=== PATIENT | female | born 1995 | race Caucasian/White ===

== ENCOUNTER 2019-06-05 15:00 | Emergency (ER) | payer OTHER ==
[2019-06-05] MEDS ORDERED: Ketorolac INJ* 30 MG/ML 1 ML VIAL IV PUSH ONE (17:17)
[2019-06-05] MEDS ORDERED: Ondansetron INJ* 2 MG/ML VIAL IV ONE (17:17)
[2019-06-05] MEDS ORDERED: Albuterol 2.5 MG/3 ML NEB.SOL* (0.083%) INH ONE (17:17)
[2019-06-05] MEDS ORDERED: NS 0.9% 1000 ML** 1,000 ML IV ONE (17:17)
[2019-06-05 18:18] LABS: ABS Eosinophils 0.3 10^3/ul (0-0.6); ABS Lymphocytes 2.4 10^3/ul (1.0-4.8); ABS Monocytes 0.7 10^3/ul (0-0.8); ABS Neutrophils 3.7 10^3/ul (1.5-7.7); Eosinophil % 4.5 %; Hematocrit 45 % (35-47); Hemoglobin 15.1 g/dL (12.0-16.0); Lymphocyte % 33.7 %; Mean Corpuscular HGB Conc 34 g/dL (31-36); Mean Corpuscular Hemoglobin 31 pg (27-31); Mean Corpuscular Volume 91 fL (80-97); Mean Platelet Volume 7.5 fL (7.4-10.4); Platelet Count 294 10^3/uL (150-450); Red Blood Count 4.94 10^6 /uL (3.70-4.87); Red Cell Distribution Width 13 % (10-15); White Blood Count 7.1 10^3/uL (3.5-10.8)
[2019-06-05 18:39] LABS: ALT 14 U/L (7-52); AST 14 U/L (13-39); Albumin 4.7 g/dL (3.2-5.2); Albumin/Globulin Ratio 1.4 (1-3); Alkaline Phosphatase 86 U/L (34-104); Anion Gap 7 mmol/L (2-11); BUN/Creatinine Ratio 16.7 (8-20); Blood Urea Nitrogen 12 mg/dL (6-24); C Reactive Protein 8.28 mg/L (<8.01); CO2 Carbon Dioxide 25 mmol/L (22-32); Calcium 9.8 mg/dL (8.6-10.3); Chloride 107 mmol/L (101-111); EGFR African American 120.4 (>60); EGFR Non-African American 99.5 (>60); Globulin 3.3 g/dL (2-4); Glucose 86 mg/dL (70-100); Potassium 4.2 mmol/L (3.5-5.0); Sodium 139 mmol/L (135-145)
[2019-06-05 18:40] LABS: Activated Partial Thrombo Time 35.4 seconds (26.0-38.0); INR 1.09 (0.82-1.09)
[2019-06-05 18:43] LABS: HCG Pregnancy < 0.60 mIU/mL
--- NOTE | 2019-06-05 19:21 | ED ---
HPI Febrile Illness - HPI Summary HPI Summary: 23-year-old female presents with fever for past couple days. States she was diagnosed with kidney infection, sinusitis and bronchitis a couple days ago. States she was placed on antibiotics (cednifir) if no improvement. She admits to occasional fevers. She admits to sinus congestion. She admits to occasional sore throat. She denies any chest pain shortness breath currently. Denies any bowel pain. She denies any nausea vomiting diarrhea. Admits to some urgency but no dysuria. She has no medical conditions. - History of Current Complaint Chief Complaint: EDBackInjuryPain Time Seen by Provider: 06/05/19 17:08 Hx Last Menstrual Period: 1 WEEK AGO Pain Intensity: 5 - Allergy/Home Medications Allergies/Adverse Reactions: Allergies Allergy/AdvReac Type Severity Reaction Status Date / Time doxycycline Allergy GI Upset Verified 06/05/19 15:08 Home Medications: Home Medications Albuterol HFA INHALER* [Ventolin HFA Inhaler*] 1 puff INH Q6H PRN 06/05/19 [ History Confirmed 06/05/19] Benzonatate CAP* [Tessalon 100 MG CAP*] 100 mg PO TID PRN 06/05/19 [History Confirmed 06/05/19] Cefdinir cap* [Cefdinir 300 MG cap (NF)] 300 mg PO BID 06/05/19 [History Confirmed 06/05/19] FLUoxetine CAP* [PROzac CAP*] 10 mg PO DAILY 06/05/19 [History Confirmed ] Varenicline 0.5 mg Tab(Nf) [Chantix 0.5 MG TAB(NF)] 0.5 mg PO DAILY 06/05/19 [ History Confirmed 06/05/19] hydrOXYzine HCL TAB* [Atarax 25 MG TAB*] 50 mg PO TID PRN 06/05/19 [History Confirmed 06/05/19] lamoTRIgine TAB(*) [LaMICtal TAB(*)] 25 mg PO DAILY 06/05/19 [History Confirmed 06/05/19] PMH/Surg Hx/FS Hx/Imm Hx Endocrine/Hematology History: Denies: Hx Anticoagulant Therapy, Hx Diabetes, Hx Thyroid Disease Cardiovascular History: Denies: Hx Hypertension, Hx Pacemaker/ICD Respiratory History: Denies: Hx Asthma, Hx Chronic Obstructive Pulmonary Disease (COPD) GI History: Denies: Hx Ulcer Musculoskeletal History: Reports: Other Musculoskeletal History - HX OF FUSED C3 -C4, BORN WITH Sensory History: Reports: Hx Contacts or Glasses - GLASSES Opthamlomology History: Reports: Hx Contacts or Glasses - GLASSES Psychiatric History: Reports: Hx Depression - CONTROL WITH MEDS, Hx Panic Disorder - Surgical History Surgery Procedure, Year, and Place: LEFT ARM FRACTURE REPAIR, [facility]. 2014 WISDOM TEETH EXTRACTION, [place] Hx Anesthesia Reactions: No - Immunization History Date of Tetanus Vaccine: up to date per pt Infectious Disease History: No Infectious Disease History: Denies: Hx Hepatitis, Hx Human Immunodeficiency Virus (HIV), Traveled Outside the [place] in Last 30 Days - Family History Known Family History: Negative: Cardiac Disease, Hypertension, Diabetes - Social History Alcohol Use: Rare Hx Substance Use: No Substance Use Type: Reports: None Hx Tobacco Use: Yes Smoking Status (MU): Current Every Day Smoker Type: Cigarettes Amount Used/How Often: 1 PPD Review of Systems Positive: Fever Positive: Sore Throat, Nasal Discharge Negative: Chest Pain Positive: Cough. Negative: Shortness Of Breath Positive: Vomiting, Diarrhea, Nausea. Negative: Abdominal Pain Positive: flank pain All Other Systems Reviewed And Are Negative: Yes Physical Exam Triage Information Reviewed: Yes Vital Signs On Initial Exam: Initial Vitals Temp Pulse Resp BP Pulse Ox 98.2 F 77 18 117/75 98 06/05/19 15:05 06/05/19 15:05 06/05/19 15:05 06/05/19 15:05 06/05/19 15:05 Vital Signs Reviewed: Yes Appearance: Positive: Well-Appearing Skin: Positive: Warm, Dry Head/Face: Positive: Normal Head/Face Inspection Eyes: Positive: Normal, EOMI, LILLIAN, Conjunctiva Clear ENT: Positive: Normal ENT inspection, Pharynx normal, TMs normal Neck: Positive: Supple, Nontender, No Lymphadenopathy. Negative: Nuchal Rigidity Respiratory/Lung Sounds: Positive: Clear to Auscultation, Breath Sounds Present Cardiovascular: Positive: Normal, RRR Abdomen Description: Positive: Nontender, Soft, CVA Tenderness (R) - mild Bowel Sounds: Positive: Present Musculoskeletal: Positive: Normal Neurological: Positive: Normal Psychiatric: Positive: Normal Procedures - Sedation Patient Received Moderate/Deep Sedation with Procedure: No Diagnostics - Vital Signs Vital Signs Temp Pulse Resp BP Pulse Ox 11/01/19 18:01 74 16 98 06/05/19 18:00 83 99 06/05/19 17:44 71 113/67 98 06/05/19 17:09 99 121/73 97 06/05/19 15:05 98.2 F 77 18 117/75 98 - Laboratory Lab Results: Lab Results 06/05/19 06/05/19 06/05/19 Range/Units 18:07 18:08 18:08 WBC 7.1 (3.5-10.8) 10^3/uL RBC 4.94 H (3.70-4.87) 10^6 /uL Hgb 15.1 (12.0-16.0) g/dL Hct 45 (35-47) % MCV 91 (80-97) fL MCH 31 (27-31) pg MCHC 34 (31-36) g/dL RDW 13 (10-15) % Plt Count 294 (150-450) 10^3/uL MPV 7.5 (7.4-10.4) fL Neut % (Auto) 52.0 % Lymph % (Auto) 33.7 % [place] % (Auto) 9.3 % Eos % (Auto) 4.5 % Baso % (Auto) 0.5 % Absolute Neuts (auto) 3.7 (1.5-7.7) 10^3/ul Absolute Lymphs (auto) 2.4 (1.0-4.8) 10^3/ul Absolute Monos (auto) 0.7 (0-0.8) 10^3/ul Absolute Eos (auto) 0.3 (0-0.6) 10^3/ul Absolute Basos (auto) 0.0 (0-0.2) 10^3/ul Absolute Nucleated RBC 0.0 10^3/ul Nucleated RBC % 0.0 ESR Pending INR (Anticoag Therapy) 1.09 (0.82-1.09) APTT 35.4 (26.0-38.0) seconds Sodium 139 (135-145) mmol/L Potassium 4.2 (3.5-5.0) mmol/L Chloride 107 (101-111) mmol/L Carbon Dioxide 25 (22-32) mmol/L Anion Gap 7 (2-11) mmol/L BUN 12 (6-24) mg/dL Creatinine 0.72 (0.51-0.95) mg/dL Est GFR ( Amer) 120.4 (>60) Est GFR (Non-Af Amer) 99.5 (>60) BUN/Creatinine Ratio 16.7 (8-20) Glucose 86 (70-100) mg/dL Lactic Acid (0.5-2.0) mmol/L Calcium 9.8 (8.6-10.3) mg/dL Total Bilirubin 0.40 (0.2-1.0) mg/dL AST 14 (13-39) U/L ALT 14 (7-52) U/L Alkaline Phosphatase 86 (34-104) U/L C-Reactive Protein 8.28 H (<8.01) mg/L Total Protein 8.0 (6.4-8.9) g/dL Albumin 4.7 (3.2-5.2) g/dL Globulin 3.3 (2-4) g/dL Albumin/Globulin Ratio 1.4 (1-3) Beta HCG, Quant < 0.60 mIU/mL Monoscreen Negative (Negative) 06/05/19 Range/Units 18:08 WBC (3.5-10.8) 10^3/uL RBC (3.70-4.87) 10^6 /uL Hgb (12.0-16.0) g/dL Hct (35-47) % MCV (80-97) fL MCH (27-31) pg MCHC (31-36) g/dL RDW (10-15) % Plt Count (150-450) 10^3/uL MPV (7.4-10.4) fL Neut % (Auto) % Lymph % (Auto) % Jerome % (Auto) % Eos % (Auto) % Baso % (Auto) % Absolute Neuts (auto) (1.5-7.7) 10^3/ul Absolute Lymphs (auto) (1.0-4.8) 10^3/ul Absolute Monos (auto) (0-0.8) 10^3/ul Absolute Eos (auto) (0-0.6) 10^3/ul Absolute Basos (auto) (0-0.2) 10^3/ul Absolute Nucleated RBC 10^3/ul Nucleated RBC % ESR INR (Anticoag Therapy) (0.82-1.09) APTT (26.0-38.0) seconds Sodium (135-145) mmol/L Potassium (3.5-5.0) mmol/L Chloride (101-111) mmol/L Carbon Dioxide (22-32) mmol/L Anion Gap (2-11) mmol/L BUN (6-24) mg/dL Creatinine (0.51-0.95) mg/dL Est GFR ( Amer) (>60) Est GFR (Non-Af Amer) (>60) BUN/Creatinine Ratio (8-20) Glucose (70-100) mg/dL Lactic Acid 0.8 (0.5-2.0) mmol/L Calcium (8.6-10.3) mg/dL Total Bilirubin (0.2-1.0) mg/dL AST (13-39) U/L ALT (7-52) U/L Alkaline Phosphatase (34-104) U/L C-Reactive Protein (<8.01) mg/L Total Protein (6.4-8.9) g/dL Albumin (3.2-5.2) g/dL Globulin (2-4) g/dL Albumin/Globulin Ratio (1-3) Beta HCG, Quant mIU/mL Monoscreen (Negative) Result Diagrams: 06/05/19 18:08 06/05/19 18:08 Lab Statement: Any lab studies that have been ordered have been reviewed, and results considered in the medical decision making process. - Radiology chest Radiology Interpretation Completed By: ED Physician Summary of Radiographic Findings: no pneumonia - Ultrasound No standard instances Ultrasound Interpretation Completed By: Radiologist Summary of Ultrasound Findings: IMPRESSION: Unremarkable renal ultrasound. Re-Evaluation - Re-Evaluation First Eval Change: Improved Comment: feels fine Second Eval Re-Evaluation Time: 19:40 Comment: discussed results Course/Dx - Course Course Of Treatment: 23-year-old female presents with fever for past couple days. States she was diagnosed with kidney infection, sinusitis and bronchitis a couple days ago. States she was placed on antibiotics (cednifir) if no improvement. She admits to occasional fevers. She admits to sinus congestion. She admits to occasional sore throat. She denies any chest pain shortness breath currently. Denies any bowel pain. She denies any nausea vomiting diarrhea. Admits to some urgency but no dysuria. She has no medical conditions. On exam appears well. Lungs CTA. Abdomen soft nontender. Does have some mild right CVA tenderness. wbc normal. CRP slightly elevated. Ultrasound normal. Chest x-ray normal. urine no infection. mono neg. discussed likely viral. will treat supporatively. patient understand and agrees with plan. - Febrile Illness Differential Diagnoses: Pneumonia, Pyelonephritis, Viremia - Diagnoses Provider Diagnoses: Bronchitis Discharge ED - Sign-Out/Discharge Documenting (check all that apply): Patient Departure - Discharge Plan Condition: Good Disposition: HOME Patient Education Materials: Acute Bronchitis (ED) Referrals: Nikki Murphy MD [Primary Care Provider] - Additional Instructions: Take Tylenol and ibuprofen every 6 hours Use saline rinses in nose for nasal congestion Follow up with primary within 3 days Return to ED if develop any new or worsening symptoms - Billing Disposition and Condition Condition: GOOD Disposition: Home - Attestation Statements Provider Attestation: I was available for consult. This patient was seen by the [facility]. The patient was not presented to, seen by, or examined by me. Tremayne Hammer MD
[2019-06-05 19:35] LABS: Urine Appearance Cloudy; Urine Bilirubin Negative (Negative); Urine Blood Negative (Negative); Urine Color Yellow; Urine Glucose Negative (Negative); Urine Ketones Negative (Negative); Urine Nitrite Negative (Negative); Urine Protein Negative (Negative); Urine Specific Gravity 1.011 (1.010-1.030); Urine Urobilinogen Negative (Negative)
[2019-06-05 20:00] VITALS: BP 107/54
[2019-06-05 20:42] LABS: Erythrocyte Sed Rate 12 mm/Hr (0-19)
== END 2019-06-05 19:59 | disposition home or self-care (01) ==
LOC: ED 15:00
DX: J40 Bronchitis, not specified as acute or chronic (principal); F32.9 Major depressive disorder, single episode, unspecified; F41.0 Panic disorder [episodic paroxysmal anxiety]; F17.210 Nicotine dependence, cigarettes, uncomplicated; Z79.899 Other long term (current) drug therapy; Z88.1 Allergy status to other antibiotic agents
CPT/HCPCS: 36415; 71046; 76775; 80053; 81003; 83605; 84702; 85025; 85610; 85652; 85730; 86140; 86308; 87040; 96361; 96374; 96375; 99282; J1885; J2405

== ENCOUNTER 2019-09-08 09:46 | Emergency (ER) | payer MEDICAID, OTHER ==
[2019-09-08 10:42] LABS: ABS Eosinophils 0.3 10^3/ul (0-0.6); ABS Lymphocytes 1.9 10^3/ul (1.0-4.8); ABS Monocytes 0.7 10^3/ul (0-0.8); ABS Neutrophils 6.3 10^3/ul (1.5-7.7); Eosinophil % 2.8 %; Hematocrit 43 % (35-47); Hemoglobin 14.5 g/dL (12.0-16.0); Lymphocyte % 20.9 %; Mean Corpuscular HGB Conc 34 g/dL (31-36); Mean Corpuscular Hemoglobin 30 pg (27-31); Mean Corpuscular Volume 89 fL (80-97); Mean Platelet Volume 7.6 fL (7.4-10.4); Platelet Count 279 10^3/uL (150-450); Red Cell Distribution Width 14 % (10-15); White Blood Count 9.3 10^3/uL (3.5-10.8)
[2019-09-08 11:02] LABS: ALT 18 U/L (7-52); AST 15 U/L (13-39); Albumin 4.4 g/dL (3.2-5.2); Albumin/Globulin Ratio 1.5 (1-3); Alkaline Phosphatase 83 U/L (34-104); Anion Gap 6 mmol/L (2-11); BUN/Creatinine Ratio 21.8 (8-20); Blood Urea Nitrogen 17 mg/dL (6-24); CO2 Carbon Dioxide 27 mmol/L (22-32); Calcium 9.2 mg/dL (8.6-10.3); Chloride 107 mmol/L (101-111); EGFR African American 109.8 (>60); EGFR Non-African American 90.7 (>60); Globulin 2.9 g/dL (2-4); Glucose 101 mg/dL (70-100); Potassium 4.7 mmol/L (3.5-5.0); Sodium 140 mmol/L (135-145); Total Protein 7.3 g/dL (6.4-8.9)
[2019-09-08 11:07] LABS: HCG Pregnancy < 0.60 mIU/mL
--- NOTE | 2019-09-08 12:02 | ED ---
Abdominal Pain/Female - HPI Summary HPI Summary: The patient is a 23 year-old female presenting to [facility] with a chief complaint of RUQ pain worsening over the last month and worst today. She reports that approximately a year ago, while experiencing similar pain, that she likely needed a cholecystectomy, but she never followed up. Over the last month, the pain has worsened, and she was scheduled for a Gallbladder US today at the [facility] in [place]. While at the appointment, her pain became more severe , but they were able to finish the US. She had lab work two days ago which was within normal limits. She endorses intermittent chills, diaphoresis, nausea, and vomiting. Symptoms currently rated 6/10 in severity. 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 Current smoker, rare EtOH, no substance use. Medications reviewed. Allergies noted. - History of Current Complaint Chief Complaint: EDAbdPain Stated Complaint: UPPER ABD PAIN PER PT Time Seen by Provider: 09/08/19 11:50 Hx Obtained From: Patient Hx Last Menstrual Period: 1 WEEK AGO Onset/Duration: Gradual Onset, Lasting Weeks, Still Present, Worse Since - today Timing: Constant Severity Initially: Mild Severity Currently: Moderate Pain Intensity: 6 Pain Scale Used: 0-10 Numeric Location: Discrete At: RUQ Radiates: No Character: Sharp Aggravating Factor(s): Nothing Alleviating Factor(s): Nothing Associated Signs and Symptoms: Positive: Diaphoresis, Nausea, Vomiting, Other: - chills Allergies/Adverse Reactions: Allergies Allergy/AdvReac Type Severity Reaction Status Date / Time doxycycline Allergy GI Upset Verified 06/05/19 15:08 PMH/Surg Hx/FS Hx/Imm Hx Endocrine/Hematology History: Denies: Hx Anticoagulant Therapy, Hx Diabetes, Hx Thyroid Disease Cardiovascular History: Denies: Hx Hypertension, Hx Pacemaker/ICD Respiratory History: Denies: Hx Asthma, Hx Chronic Obstructive Pulmonary Disease (COPD) GI History: Denies: Hx Ulcer Musculoskeletal History: Reports: Other Musculoskeletal History - HX OF FUSED C3 -C4, BORN WITH Sensory History: Reports: Hx Contacts or Glasses - GLASSES Opthamlomology History: Reports: Hx Contacts or Glasses - GLASSES Psychiatric History: Reports: Hx Depression - CONTROL WITH MEDS, Hx Panic Disorder - Surgical History Surgical History: Yes Surgery Procedure, Year, and Place: LEFT ARM FRACTURE REPAIR, [facility] – [place]. 2014 WISDOM TEETH EXTRACTION, [place] Hx Anesthesia Reactions: No - Immunization History Date of Tetanus Vaccine: up to date per pt Infectious Disease History: No Infectious Disease History: Denies: Hx Hepatitis, Hx Human Immunodeficiency Virus (HIV), Traveled Outside the US in Last 30 Days - Family History Known Family History: Negative: Cardiac Disease, Hypertension, Diabetes - Social History Alcohol Use: Rare Hx Substance Use: No Substance Use Type: Reports: None Hx Tobacco Use: Yes Smoking Status (MU): Current Every Day Smoker Type: Cigarettes Amount Used/How Often: 1 PPD Review of Systems Positive: Chills, Skin Diaphoresis Positive: Abdominal Pain - RUQ, Vomiting, Nausea All Other Systems Reviewed And Are Negative: Yes Physical Exam - Summary Physical Exam Summary: Constitutional: Well-developed, Well-nourished, Alert. (-) Distressed Skin: Warm, Dry HENT: Normocephalic; Atraumatic Eyes: Conjunctiva normal Neck: Musculoskeletal ROM normal neck. (-) JVD, (-) Stridor, (-) Tracheal deviation Cardio: Rhythm regular, rate normal, Heart sounds normal; Intact distal pulses; The pedal pulses are 2+ and symmetric. Radial pulses are 2+ and symmetric. (-) Murmur Pulmonary/Chest wall: Effort normal. (-) Respiratory distress, (-) Wheezes, (-) Rales Abd: Soft, (+) Mild epigastric/RUQ tenderness, (-) Distension, (-) Guarding, (- ) Rebound Musculoskeletal: (-) Edema Lymph: (-) Cervical adenopathy Neuro: Alert, Oriented x3 Psych: Mood and affect Normal Triage Information Reviewed: Yes Vital Signs On Initial Exam: Initial Vitals Temp Pulse Resp BP Pulse Ox 97.4 F 59 18 112/80 99 09/08/19 09:47 09/08/19 09:47 09/08/19 09:47 09/08/19 09:47 09/08/19 09:47 Vital Signs Reviewed: Yes Procedures - Sedation Patient Received Moderate/Deep Sedation with Procedure: No Diagnostics - Vital Signs Vital Signs Temp Pulse Resp BP Pulse Ox 09/08/19 11:49 98.4 F 68 20 121/54 99 09/08/19 09:47 97.4 F 59 18 112/80 99 - Laboratory Lab Results: Lab Results 09/08/19 09/08/19 Range/Units 10:21 10:21 WBC 9.3 (3.5-10.8) 10^3/uL RBC 4.80 (3.70-4.87) 10^6 /uL Hgb 14.5 (12.0-16.0) g/dL Hct 43 (35-47) % MCV 89 (80-97) fL MCH 30 (27-31) pg MCHC 34 (31-36) g/dL RDW 14 (10-15) % Plt Count 279 (150-450) 10^3/uL MPV 7.6 (7.4-10.4) fL Neut % (Auto) 68.2 % Lymph % (Auto) 20.9 % [place] % (Auto) 7.6 % Eos % (Auto) 2.8 % Baso % (Auto) 0.5 % Absolute Neuts (auto) 6.3 (1.5-7.7) 10^3/ul Absolute Lymphs (auto) 1.9 (1.0-4.8) 10^3/ul Absolute Monos (auto) 0.7 (0-0.8) 10^3/ul Absolute Eos (auto) 0.3 (0-0.6) 10^3/ul Absolute Basos (auto) 0.0 (0-0.2) 10^3/ul Absolute Nucleated RBC 0.0 10^3/ul Nucleated RBC % 0.0 Sodium 140 (135-145) mmol/L Potassium 4.7 (3.5-5.0) mmol/L Chloride 107 (101-111) mmol/L Carbon Dioxide 27 (22-32) mmol/L Anion Gap 6 (2-11) mmol/L BUN 17 (6-24) mg/dL Creatinine 0.78 (0.51-0.95) mg/dL Est GFR ( Amer) 109.8 (>60) Est GFR (Non-Af Amer) 90.7 (>60) BUN/Creatinine Ratio 21.8 H (8-20) Glucose 101 H (70-100) mg/dL Calcium 9.2 (8.6-10.3) mg/dL Total Bilirubin 0.30 (0.2-1.0) mg/dL AST 15 (13-39) U/L ALT 18 (7-52) U/L Alkaline Phosphatase 83 (34-104) U/L Total Protein 7.3 (6.4-8.9) g/dL Albumin 4.4 (3.2-5.2) g/dL Globulin 2.9 (2-4) g/dL Albumin/Globulin Ratio 1.5 (1-3) Lipase < 10 L (11.0-82.0) U/L Beta HCG, Quant < 0.60 mIU/mL Result Diagrams: 09/08/19 10:21 09/08/19 10:21 Lab Statement: Any lab studies that have been ordered have been reviewed, and results considered in the medical decision making process. Re-Evaluation - Re-Evaluation First Eval Re-Evaluation Time: 15:20 Comment: We discussed results and plan for discharge with surgery follow up. Abdominal Pain Fem Course/Dx - Course Course Of Treatment: Patient is a 23 year-old female presenting with RUQ pain, nausea, vomiting, chills, and diaphoresis over the last month but worsening today while having a Gallbladder US at the [facility] to determine if she needs a cholecystectomy as she was advised a year ago that she would need one but never followed up. 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 Physical exam is significant for mild epigastric/RUQ tenderness. Blood work obtained, revealing lipase <10 but otherwise within normal limits. We attempted to obtain the results of the patient's US from earlier today, but the report has not been transmitted to the clinic yet. Based on her lab results and physical exam, she is safe for discharge at this time. She is referred to surgery for consulation. Patient agreeable with plan. Patient appears well, afebrile, nontoxic, requesting discharge home. As noted, unable to obtain gallbladder ultrasound report from study performed earlier today. Patient given general surgery referral. - Diagnoses Provider Diagnoses: Gallstones Discharge ED - Sign-Out/Discharge Documenting (check all that apply): Patient Departure - Patient will be discharged home. - Discharge Plan Condition: Stable Disposition: HOME Patient Education Materials: Gallstones (ED) Referrals: Nikki Murphy MD [Primary Care Provider] - 2 Days Elza Gallegos MD [Medical Doctor] - 2 Days Additional Instructions: Follow up with Dr. Gallegos from surgery in 1-2 days. Follow up with your primary care provider in 1-2 days. Return to the emergency department for any new or worsening symptoms. - Billing Disposition and Condition Condition: STABLE Disposition: Home - Attestation Statements Document Initiated by Gloria: Yes Documenting Scribe: Ceci Coulter Provider For Whom Gloria is Documenting (Include Credential): Dr. Ata Perez DO Scribe Attestation: ICeci scribed for Dr. Ata Perez DO on 09/08/19 at 1508. Scribe Documentation Reviewed: Yes Provider Attestation: The documentation as recorded by the Ceci pepe accurately reflects the service I personally performed and the decisions made by me, Dr. Ata Perez DO Status of Scrbeatriz Document: Viewed
[2019-09-08 14:11] VITALS: BP 00/00
== END 2019-09-08 14:09 | disposition home or self-care (01) ==
LOC: ED 09:46
DX: K80.80 Other cholelithiasis without obstruction (principal); F32.9 Major depressive disorder, single episode, unspecified; F17.210 Nicotine dependence, cigarettes, uncomplicated; Z90.49 Acquired absence of other specified parts of digestive tract; Z88.1 Allergy status to other antibiotic agents
CPT/HCPCS: 36415; 80053; 83690; 84702; 85025; 99283

== ENCOUNTER 2019-09-10 06:31 | Inpatient (IN) | payer OTHER ==
--- NOTE | 2019-09-10 06:43 | ED ---
Abdominal Pain/Female - HPI Summary HPI Summary: Pt. is a 23 y.o female who presents to the ER for worsening RUQ pain with known gallstones. Pt. states she had a GB u/s two days ago at [place] and was referred to ED for stones. Pt. seen here two days ago and was dc with surgery f.u. Pt. states pain has been constant since with associated vomiting and chills. Pt. also notes mild left CVA tenderness. Sxs are moderate in severity. No current modifying factors. - History of Current Complaint Chief Complaint: EDAbdPain Stated Complaint: ABD PAIN PER PT Time Seen by Provider: 09/10/19 06:42 Hx Obtained From: Patient Hx Last Menstrual Period: 1 WEEK AGO Pain Intensity: 8 Allergies/Adverse Reactions: Allergies Allergy/AdvReac Type Severity Reaction Status Date / Time doxycycline Allergy GI Upset Verified 06/05/19 15:08 PMH/Surg Hx/FS Hx/Imm Hx Previously Healthy: Yes Endocrine/Hematology History: Denies: Hx Anticoagulant Therapy, Hx Diabetes, Hx Thyroid Disease Cardiovascular History: Denies: Hx Hypertension, Hx Pacemaker/ICD Respiratory History: Denies: Hx Asthma, Hx Chronic Obstructive Pulmonary Disease (COPD) GI History: Denies: Hx Ulcer Musculoskeletal History: Reports: Other Musculoskeletal History - HX OF FUSED C3 -C4, BORN WITH Sensory History: Reports: Hx Contacts or Glasses - GLASSES Opthamlomology History: Reports: Hx Contacts or Glasses - GLASSES Psychiatric History: Reports: Hx Depression - CONTROL WITH MEDS, Hx Panic Disorder - Surgical History Surgery Procedure, Year, and Place: LEFT ARM FRACTURE REPAIR, [facility]. 2014 WISDOM TEETH EXTRACTION, [place] Hx Anesthesia Reactions: No - Immunization History Date of Tetanus Vaccine: up to date per pt Infectious Disease History: No Infectious Disease History: Denies: Hx Hepatitis, Hx Human Immunodeficiency Virus (HIV), Traveled Outside the [place] in Last 30 Days - Family History Known Family History: Positive: Non-Contributory Negative: Cardiac Disease, Hypertension, Diabetes - Social History Occupation: Employed Part-time Lives: With Family Alcohol Use: Rare Hx Substance Use: No Substance Use Type: Reports: None Hx Tobacco Use: Yes Smoking Status (MU): Current Every Day Smoker Type: Cigarettes Amount Used/How Often: 1 PPD Review of Systems Positive: Chills ENT: Negative Cardiovascular: Negative Negative: Chest Pain Respiratory: Negative Negative: Shortness Of Breath Positive: Abdominal Pain, Vomiting, Nausea Genitourinary: Negative Negative: dysuria Neurological: Negative All Other Systems Reviewed And Are Negative: Yes Physical Exam Triage Information Reviewed: Yes Vital Signs On Initial Exam: Initial Vitals Temp Pulse Resp BP Pulse Ox 97.8 F 101 20 144/100 96 09/10/19 06:34 09/10/19 06:34 09/10/19 06:34 09/10/19 06:34 09/10/19 06:34 Vital Signs Reviewed: Yes Appearance: Positive: Pain Distress - Pt. sitting up in bed, tearful, appears in pain. Nontoxic. Skin: Positive: Warm, Dry Head/Face: Positive: Normal Head/Face Inspection Eyes: Positive: Normal, EOMI, LILLIAN Neck: Positive: Supple Respiratory/Lung Sounds: Positive: Clear to Auscultation, Breath Sounds Present Cardiovascular: Positive: Normal, RRR Abdomen Description: Positive: Other: - Obese. Abd is soft with mild tenderness to RUQ. Negative minor sign. No rebound or guarding. Mild left CVA tenderness. Neurological: Positive: Normal, CN Intact II-III Psychiatric: Positive: Affect/Mood Appropriate Procedures - Sedation Patient Received Moderate/Deep Sedation with Procedure: No Diagnostics - Vital Signs Vital Signs Temp Pulse Resp BP Pulse Ox 09/10/19 06:34 97.8 F 101 20 144/100 96 - Laboratory Result Diagrams: 09/10/19 06:58 09/10/19 06:58 Lab Statement: Any lab studies that have been ordered have been reviewed, and results considered in the medical decision making process. Abdominal Pain Fem Course/Dx - Course Course Of Treatment: Pt. presenting with intractable pain and vomiting with known cholelithiasis. Afebrile. Pt. given IV fluids and pain medications. Pt.'s u/s was down at [place] and we do not have access. Will repeat u/s today and labs. GB u/s per radiology: IMPRESSION: #. Cholelithiasis and gallbladder wall thickening. No pericholecystic fluid or. sonographic Minor's sign to strongly support acute cholecystitis. Correlate with clinical. assessment and consider biliary scintigraphy to assess for cystic duct patency if deemed. appropriate. Labs shows minimally elevation in CRP otherwise unremarkable. Case discussed with ED attending, Dr. Soares. 0808: Case discussed with oncall surgery, Dr. Armendariz, who will admit pt. for likely cholelithiasis. - Diagnoses Differential Diagnosis: Positive: Gall Bladder Disease, Pancreatitis, Renal Colic, Urinary Tract Infection Provider Diagnoses: Cholelithiasis Discharge ED - Sign-Out/Discharge Documenting (check all that apply): Patient Departure - Discharge Plan Condition: Stable Disposition: ADMITTED TO [facility] - Billing Disposition and Condition Condition: STABLE Disposition: Admitted to [facility] - Attestation Statements Provider Attestation: pt seen by midlevel provider independently, based on their assessment, it was not necessary to present the case to me but I was available for consultation. I did not form a physician-patient relationship with the patient. The chart however, has been reviewed. am signing this note strictly in an administrative capacity.
[2019-09-10] MEDS ORDERED: Morphine 4 MG/ML VIAL (1 ml) 4 MG/ML VIAL IV ONE (06:49)
[2019-09-10] MEDS ORDERED: NS 0.9% 1000 ML** 1,000 ML IV ONE (06:49)
[2019-09-10] MEDS ORDERED: Ondansetron INJ* 2 MG/ML VIAL IV ONE (06:49)
[2019-09-10 07:07] LABS: ABS Eosinophils 0.3 10^3/ul (0-0.6); ABS Lymphocytes 2.2 10^3/ul (1.0-4.8); ABS Monocytes 0.7 10^3/ul (0-0.8); ABS Neutrophils 5.9 10^3/ul (1.5-7.7); Eosinophil % 3.2 %; Hematocrit 42 % (35-47); Hemoglobin 14.5 g/dL (12.0-16.0); Lymphocyte % 23.8 %; Mean Corpuscular HGB Conc 34 g/dL (31-36); Mean Corpuscular Hemoglobin 30 pg (27-31); Mean Corpuscular Volume 88 fL (80-97); Mean Platelet Volume 7.3 fL (7.4-10.4); Nucleated Red Blood Cells % 0.1; Platelet Count 299 10^3/uL (150-450); Red Blood Count 4.81 10^6 /uL (3.70-4.87); Red Cell Distribution Width 13 % (10-15); White Blood Count 9.1 10^3/uL (3.5-10.8)
[2019-09-10 07:30] LABS: ALT 17 U/L (7-52); AST 13 U/L (13-39); Albumin 4.3 g/dL (3.2-5.2); Albumin/Globulin Ratio 1.4 (1-3); Alkaline Phosphatase 83 U/L (34-104); Anion Gap 6 mmol/L (2-11); BUN/Creatinine Ratio 19.7 (8-20); Blood Urea Nitrogen 14 mg/dL (6-24); C Reactive Protein 12.59 mg/L (<8.01); CO2 Carbon Dioxide 27 mmol/L (22-32); Calcium 9.8 mg/dL (8.6-10.3); Chloride 104 mmol/L (101-111); EGFR African American 122.4 (>60); EGFR Non-African American 101.1 (>60); Glucose 127 mg/dL (70-100); Sodium 137 mmol/L (135-145); Total Protein 7.3 g/dL (6.4-8.9)
[2019-09-10 07:32] LABS: HCG Pregnancy < 0.60 mIU/mL
[2019-09-10] MEDS ORDERED: HYDROmorphone INJ* 0.5 MG/0.5 ML SYRINGE IV SLOW PU PRN (11:17)
[2019-09-10] MEDS ORDERED: oxyCODONE/Acetamin 5/325 MG* TAB PO PRN (11:17)
[2019-09-10] MEDS ORDERED: NS 0.9% 1000 ML** 1,000 ML IV SCH (11:30)
--- NOTE | 2019-09-10 11:34 | HP ---
History of Present Illness - History of Present Illness Reason for Visit: Cholecytitis History of Present Illness: 23 yo female who was seen in [facility] and our ED in the last few days for N/V/D, RUQ abdominal pain, history of same after fatty foods. Was to be seen as an outpatient for elective cholecystectomy but return of her symptoms brought her back to the ED. Wants to have her GB out. - Past Medical History Gastrointestinal: GERD Hepatobiliary: Cholelithiasis Psych: Anxiety, Bipolar, Depression - Past Surgical History Past Surgical History: Other - EGD, Extraction of [place] teeth - Past Family History Family History: Cancer - Paternal GM with breast cancer, stomach cancer - Past Social History Smoke: 1 pack per day Occupation: [employer] Alcohol: Occasional Drugs: None Lives: With Family Domestic Violence: Negative Review of Systems - Review of Systems Constitutional: Positive: Fever Eyes: Negative: Pain, Vision Change, Conjunctivae Inflammation, Eyelid Inflammation, Redness, Other ENT: Negative: Ear Pain, Ear Discharge, Nose Pain, Nose Discharge, Nose Congestion, Mouth Pain, Mouth Swelling, Throat Pain, Throat Swelling, Other Respiratory: Negative: Cough, Dry, Shortness of Breath, Hemoptysis, SOB with Excertion, Pleuritic Pain, Sputum, Wheezing Cardiovascular: Negative: Chest Pain, Palpitations, Orthopnea, Paroxysmal Noc. Dyspnea, Edema, Light Headedness, Other Gastrointestinal: Positive: Nausea, Vomiting, Abdominal Pain, Diarrhea Genitourinary: Negative: Dysuria, Frequency, Incontinence, Hematuria, Retention , Other Musculoskeletal: Negative: Neck Pain, Shoulder Pain, Arm Pain, Back Pain, Hand Pain, Leg Pain, Foot Pain, Other Neurological/Mental Status: Negative: Weakness, Numbness, Incoordination, Change in Speech, Confusion, Seizures, Other - Medications/Allergies Allergies/Adverse Reactions: Allergies Allergy/AdvReac Type Severity Reaction Status Date / Time doxycycline Allergy GI Upset Verified 09/15/19 00:07 Exam - Exam Vital Signs: Vital Signs Temp 97.8 F 09/10/19 06:34 Pulse 65 09/10/19 10:00 Resp 18 09/10/19 07:23 BP 107/59 09/10/19 09:57 Pulse Ox 94 09/10/19 10:00 Intake & Output 09/09/19 09/10/19 09/10/19 18:59 06:59 18:59 Intake Total 1000 Balance 1000 Weight 170 lb Intake: IV Fluids 1000 Laboratory Tests 09/10/19 09/10/19 06:58 06:58 WBC 9.1 C-Reactive Protein 12.59 H Beta HCG, Quant < 0.60 Patient Name: MACIE LUU Medical Record#: [id number] Ordering Physician: Elijah ARTEAGA Acct.#: [id number] : 1995 Age: 23 Sex: F Location: EMERGENCY DEPARTMENT Exam Date: 09/10/19647 ADM Status: REG ER Order Information: US GALL BLADDER Accession Number: [id number] CPT: 86785 Indication: Right upper quadrant pain. History of cholelithiasis. COMPARISON: June 05, 2019 renal ultrasound. Technique: RIGHT upper quadrant ultrasound. Report: Appropriate direction flow documented in the portal and hepatic veins. 14.9 cm liver is normal in echogenicity. Negative for focal hepatic lesions. Negative for intrahepatic biliary dilatation. 0.4 cm common bile duct. Adequately distended gallbladder is packed with innumerable stones and remarkable for wall thickening measuring up to 0.5 cm. No visualized pericholecystic fluid. Negative for sonographic Minor's sign. The pancreatic head and tail are partially obscured due to bowel gas with the visualized pancreas unremarkable. Negative for ascites. RIGHT KIDNEY: 10.5 cm x 4.6 cm x 4.6 cm. #. Cortical thickness and echotexture: Normal. #. Focal lesions: None. #. Nephrolithiasis: No conspicuous stones. #. Collecting system: Negative for pelvicaliectasis. IMPRESSION: #. Cholelithiasis and gallbladder wall thickening. No pericholecystic fluid or sonographic Minor's sign to strongly support acute cholecystitis. Correlate with clinical assessment and consider biliary scintigraphy to assess for cystic duct patency if deemed appropriate. <Electronically signed by Troy Lewis MD in [place]> 09/10/19 0755 Dictated By: Troy Lewis MD Dictated Date/Time: 09/10/19 075 Transcribed Date/Time: 09/10/19 0752 Copy to: General: Alert, Oriented x3, Cooperative, No acute distress HEENT: Atraumatic, EOMI, Mucous membr. moist/pink Lungs: Clear to auscultation Cardiovascular: Regular rate, Normal S1, Normal S2 Abdomen: Normal bowel sounds, Soft, Other - ++ Tender RUQ, + Minor's Extremities: Other - calves soft non tender Skin: No rashes Neurological: Cranial nerves 3-12 NL Psych/Mental Status: Mental status NL, Mood NL Assessment/Plan - Assessment/Plan Assessment: 23 yo female with signs and symptoms CW cholecystitis Plan: Admit to surgery IV ABX, Cipro and Flagyl IV Fluids NPO after midnight for OR Tomorrow IV and PO Analgesia, IV only once NPO Risks and benefits of Surgery were D/W Patient, all Questions were answered Above D/W Dr Armendariz
[2019-09-10] MEDS ORDERED: Acetaminophen TAB* 325 MG PO PRN (11:48)
[2019-09-10] MEDS ORDERED: hydrOXYzine HCL TAB* 50 MG PO PRN (11:48)
[2019-09-10 11:53] LABS: Urine Appearance Clear; Urine Bilirubin Negative (Negative); Urine Blood Negative (Negative); Urine Color Straw; Urine Glucose Negative (Negative); Urine Ketones Negative (Negative); Urine Nitrite Negative (Negative); Urine Protein Negative (Negative); Urine Specific Gravity 1.008 (1.010-1.030); Urine Urobilinogen Negative (Negative)
[2019-09-10] MEDS: Ondansetron INJ* 2 MG/ML VIAL IV PRN ×2 (13:10→19:20)
[2019-09-10] MEDS: metroNIDAZOLE IV 500 MG/100ML* 500 MG/100 ML BAG IVPB SCH ×2 (13:39→21:29)
[2019-09-10] MEDS ORDERED: Buffered Lidocaine 1% SYRIN* 1 ML/SYRINGE INTRADERM ONE (14:42)
[2019-09-10] MEDS: lamoTRIgine TAB(*) 25 MG PO SCH ×2 (15:19→21:30)
[2019-09-10] MEDS: Morphine INJ* 2 MG/ML 1 ML SYRINGE (TWO MG - NEW SYRINGE VERSION) IV PRN ×2 (16:00→21:36)
[2019-09-11] MEDS: metroNIDAZOLE IV 500 MG/100ML* 500 MG/100 ML BAG IVPB SCH (04:55)
[2019-09-11] MEDS: Ondansetron INJ* 2 MG/ML VIAL IV PRN ×2 (04:59→14:30)
[2019-09-11 05:36] LABS: ABS Eosinophils 0.2 10^3/ul (0-0.6); ABS Lymphocytes 2.6 10^3/ul (1.0-4.8); ABS Monocytes 0.7 10^3/ul (0-0.8); ABS Neutrophils 3.2 10^3/ul (1.5-7.7); Eosinophil % 3.6 %; Hematocrit 41 % (35-47); Hemoglobin 13.6 g/dL (12.0-16.0); Mean Corpuscular HGB Conc 34 g/dL (31-36); Mean Corpuscular Hemoglobin 30 pg (27-31); Mean Corpuscular Volume 90 fL (80-97); Mean Platelet Volume 7.9 fL (7.4-10.4); Nucleated Red Blood Cells % 0.1; Platelet Count 249 10^3/uL (150-450); Red Blood Count 4.52 10^6 /uL (3.70-4.87); Red Cell Distribution Width 13 % (10-15); White Blood Count 6.7 10^3/uL (3.5-10.8)
[2019-09-11] MEDS ORDERED: Lactated Ringers 1000 ML Bag* 1,000 ML IV SCH (06:00)
[2019-09-11 06:02] LABS: Albumin 3.8 g/dL (3.2-5.2); Albumin/Globulin Ratio 1.5 (1-3); BUN/Creatinine Ratio 13.3 (8-20); C Reactive Protein 14.8 mg/L (<8.01); Calcium 8.6 mg/dL (8.6-10.3); EGFR African American 102.2 (>60); EGFR Non-African American 84.5 (>60); Globulin 2.6 g/dL (2-4); Potassium 4.2 mmol/L (3.5-5.0); Total Bilirubin 0.7 mg/dL (0.2-1.0); Total Protein 6.4 g/dL (6.4-8.9)
[2019-09-11] MEDS ORDERED: FLUoxetine CAP* 10 MG PO SCH (09:00)
[2019-09-11] MEDS: lamoTRIgine TAB(*) 25 MG PO SCH (09:26)
--- NOTE | 2019-09-11 09:42 | PN ---
Progress Note - Progress Note Date of Service: 09/11/19 SOAP: Subjective: Pt seen and examined last night and again this am. continued abdo pain, nausea Objective: Intake & Output 09/10/19 09/11/19 09/11/19 22:59 06:59 14:59 Intake Total 109 105 Output Total 400 Balance -291 105 Temp Pulse Resp BP Pulse Ox 98.2 F 64 18 94/46 98 09/11/19 07:14 09/11/19 07:14 09/11/19 08:00 09/11/19 07:14 09/11/19 07:14 a nd o x3, nad lungs clear abdo: soft/ ND/ tender at RUQ labs notes US reviewed Assessment: Acute cholecystitis Plan: abx ivf npo OR for robotic cholecystectomy, R/B/A discussed and pt wishes to proceed
[2019-09-11] MEDS ORDERED: Propofol* 10 MG/ML 20 ML BTL ONE (10:13)
[2019-09-11] MEDS ORDERED: Succinylcholine* 20 MG/ML 10 ML VIAL ONE (10:13)
[2019-09-11] MEDS ORDERED: Rocuronium* 10 MG/ML VIAL ONE (10:13)
[2019-09-11] MEDS ORDERED: Dexamethasone IV* 4 MG/ML 1 ML (4 MG) ONE (10:18)
[2019-09-11] MEDS ORDERED: Ondansetron INJ* 2 MG/ML VIAL ONE ×2 (10:18→14:30)
[2019-09-11] MEDS ORDERED: Glycopyrrolate IV* 0.2 MG/ML 1 ML VIAL ONE (10:18)
[2019-09-11] MEDS ORDERED: Ketorolac INJ* 30 MG/ML 1 ML VIAL ONE (10:19)
[2019-09-11] MEDS ORDERED: Midazolam* 1 MG/ML 2 ML VIAL (2 MG) ONE (10:19)
[2019-09-11] MEDS ORDERED: fentaNYL* 50 MCG/ML 2 ML VIAL (100 MCG VIAL) ONE ×2 (10:19→12:21)
[2019-09-11] MEDS ORDERED: Clindamycin 900 MG/D5W BAG(*) 0 MG/0 ML BAG IVPB ONE (10:55)
[2019-09-11] MEDS ORDERED: Bupivacaine 0.5% W/EPI SDV* 10 ML VIAL INJ ONE (10:59)
[2019-09-11] MEDS ORDERED: Bupivacaine 0.25% SDV* 30 ML ONE (10:59)
[2019-09-11] MEDS ORDERED: ceFAZolin 2 GM PREMIX in ORs 2 GM/50 ML BAG ONE (11:05)
[2019-09-11] MEDS ORDERED: fentaNYL* 50 MCG/ML 2 ML VIAL (100 MCG VIAL) IV PRN (12:46)
[2019-09-11] MEDS ORDERED: Naloxone* 0.4 MG/ML 1 ML VIAL IV PRN (12:46)
[2019-09-11] MEDS ORDERED: Sugammadex * 500 MG/5 ML VIAL IV PUSH ONE (13:30)
--- NOTE | 2019-09-11 14:22 | BRIEFOPN ---
Brief Operative/Procedure Note - Operation Details Pre-Op Diagnosis: acute cholecystitis Post-Op Diagnosis: same Procedures: robotic cholecystectomy Surgeon(s)/Proceduralists: Marcello. Assist: CRISTAL An Anesthesia: GET. Fluids: 700 ml RL Estimated Blood Loss: <50 ml Findings: as above Specimen(s)/Culture(s) Description: gallbladder Complications: none
[2019-09-11] MEDS ORDERED: PROCHLORPERAZINE INJ 5 MG/ML 2 ML VIAL ONE (14:23)
[2019-09-11] MEDS ORDERED: HYDROmorphone INJ1* 1 MG/ML SYRINGE ONE (14:27)
[2019-09-11 15:53] VITALS: BP 109/60
--- NOTE | 2019-09-11 23:34 | OP ---
CC: [facility]; Primary Care Doctor * DATE OF OPERATION: 09/11/19 - ROOM #331 DATE OF : [birth year] SURGEON: Marco A Armendariz MD TRAFFIC OBSERVER: CRISTAL Mckeon ANESTHESIA: General anesthesia. PRE-OP DIAGNOSIS: Cholelithiasis. POST-OP DIAGNOSIS: [id number] cholelithiasis. OPERATIVE PROCEDURE: Robotic cholecystectomy. ESTIMATED BLOOD LOSS: Minimal blood loss. FLUIDS: 700 cc of crystalloid fluid given. DRAINS: None. COMPLICATIONS: None. SPECIMENS: Gallbladder and fluid for culture. INDICATIONS: Ms. Abdalla is a 23-year-old female admitted to my service yesterday with a diagnosis of acute cholecystitis, started on antibiotics. I discussed with her recommendation of laparoscopic cholecystectomy, robotic cholecystectomy. I outlined the details of the procedure going over the risks, benefits, and alternatives in standard fashion and the patient agreed. We spoke about the possible complications which included, but not limited to bleeding, infection, injury to adjacent organs, need for additional procedures, possible bile leak, possible common bile duct injury. The patient agreed and signed consent. DESCRIPTION OF PROCEDURE: She was marked in the preoperative area, taken to the operating room and placed on the operating table in supine position. Preoperative antibiotics were given. Sequential devices were placed on bilateral lower extremities. General anesthesia was induced and the patient's abdomen was prepped and draped in standard surgical fashion. A time-out was performed. Folds of the umbilicus were elevated anteriorly and a Veress needle inserted into the abdominal cavity, which was then allowed to insufflate to a pressure of 15 mmHg. The patient tolerated the insufflation well. A left upper quadrant 8-mm robotic trocar was then inserted blindly. Laparoscope was inserted through this. There was no evidence of injury from the trocar insertion or from the Veress needle, which was then removed. Additional trocars were then placed in the following position: An 8-mm infraumbilically and an 8-mm and a 12-mm in the right lower quadrant. The robot was then docked. The patient was placed in a reverse Trendelenburg right side up position. The gallbladder was identified and prior to the docking, it was noted to be stiff and unable to handle. For this reason, I placed an aspiration needle at the fundus of the gallbladder and long out approximately 10 cc of purulent fluid and sent this off as specimen. We then at this point docked the robot and appropriately placed our instruments in and we then proceeded to the terminal. The fundus of the gallbladder was then able to be grasped and retracted anteriorly and over the liver. The infundibular region was identified and with the help of Firefly, the common bile duct and cystic duct were evaluated. There was a large node of Calot, which was dissected free with hook cautery and reflected posteriorly. Cystic duct was isolated as was the cystic artery, which was robust and ran a course posteriorly as well as along the medial aspect of the gallbladder. Both the cystic duct and cystic artery were doubly clipped and ligated. We then placed another clip for the posterior branch and cauterized over this. The gallbladder was then removed from the liver bed. We did enter into the gallbladder at the lateral aspect and a fair amount of debris was evacuated. Ultimately, the gallbladder was removed, placed in the endoscopic retrieval bag that was placed through the right lateral port site after undocking the robot. The gallbladder was placed in here as well as multiple debris and stones that escaped and the bag was sealed up. Next, suction irrigation was used to get the additional debris and stones up. We reviewed the cystic duct stump and cystic artery stump, which showed no bleeding or bile. We then undocked the robot, went back to the patient's side and after dilating the right-sided port, we were able to get the specimen out in its endoscopic retrieval bag. This was passed off as specimen. We then closed the fascia at this right lateral site with an 0 Vicryl suture using a Weck device. The abdomen was allowed to collapse. Trocars were removed under direct vision and all 4 skin incisions were reapproximated with 4-0 Monocryl subcuticular sutures followed by Steri-Strips and sterile dressing. The patient tolerated the procedure well, was woken up, and transferred to the PACU in stable condition. [id number]/[facility] #: [id number] MARY ANN
--- NOTE | 2019-09-16 09:35 | HP ---
History of Present Illness - History of Present Illness Reason for Visit: Cholecystitis History of Present Illness: 23 yo female has been seen in [facility] and our clinic in the last few days for N/V/D after fatty foods. Was to be scheduled as an out patient for cholecystectomy but returned to ED due to return of symptoms. Wants her gallbladder out - Past Medical History Gastrointestinal: GERD Hepatobiliary: Cholelithiasis Psych: Anxiety, Bipolar, Depression - Past Surgical History Past Surgical History: Other - EGD, [place] tooth extraction - Past Family History Family History: Cancer - Paternal GM with Breast Cancer - Past Social History Smoke: 1 pack per day Occupation: [employer] Alcohol: Occasional Drugs: None Lives: With Family Review of Systems - Review of Systems Constitutional: Positive: Fever Eyes: Negative: Pain, Vision Change, Conjunctivae Inflammation, Eyelid Inflammation, Redness, Other ENT: Negative: Ear Pain, Ear Discharge, Nose Pain, Nose Discharge, Nose Congestion, Mouth Pain, Mouth Swelling, Throat Pain, Throat Swelling, Other Respiratory: Negative: Cough, Dry, Shortness of Breath, Hemoptysis, SOB with Excertion, Pleuritic Pain, Sputum, Wheezing Cardiovascular: Negative: Chest Pain, Palpitations, Orthopnea, Paroxysmal Noc. Dyspnea, Edema, Light Headedness, Other Gastrointestinal: Positive: Nausea, Vomiting, Abdominal Pain, Diarrhea Genitourinary: Negative: Dysuria, Frequency, Incontinence, Hematuria, Retention , Other Musculoskeletal: Negative: Neck Pain, Shoulder Pain, Arm Pain, Back Pain, Hand Pain, Leg Pain, Foot Pain, Other Skin: Negative: Rash, Lesions, John, Bruising, Other Neurological/Mental Status: Negative: Weakness, Numbness, Incoordination, Change in Speech, Confusion, Seizures, Other - Medications/Allergies Allergies/Adverse Reactions: Allergies Allergy/AdvReac Type Severity Reaction Status Date / Time doxycycline Allergy GI Upset Verified 09/15/19 00:07 Exam - Exam Vital Signs: Temp Pulse Resp BP Pulse Ox 97.9 F 73 16 109/60 97 09/11/19 14:12 09/11/19 15:15 09/11/19 16:18 09/11/19 15:30 09/11/19 15:15 General: Alert, Oriented x3, Cooperative, No acute distress HEENT: Atraumatic, PERRLA, EOMI Lungs: Clear to auscultation, Normal air movement Cardiovascular: Regular rate, Normal S1, Normal S2 Abdomen: Normal bowel sounds, Soft, Other - + MRUQ Pain to Palp + Minor's Extremities: No tenderness/swelling Skin: No rashes Neurological: Normal gait Psych/Mental Status: Mental status NL, Mood NL Assessment/Plan - Assessment/Plan Assessment: 23 yo female with S/S CW cholecystitis Plan: Admit to surgery IV ABX, Cipro and Flagyl IV Fluids NPO after midnight for OR Tomorrow IV and PO Analgesia, IV only once NPO Risks and benefits of Surgery were D/W Patient, all Questions were answered Above D/W Dr Armendariz
--- NOTE | 2019-09-18 12:20 | DS ---
DISCHARGE SUMMARY: DATE OF ADMISSION: DATE OF DISCHARGE: 09/11/19 HOSPITAL COURSE: Ms. Abdalla is a 23-year-old female who presented to the hospital on 09/10/19, the second time in 3 days with complaints of abdominal pain consistent with gallbladder disease. I admit bandar her to my service and started on antibiotics for a diagnosis of acute cholecystitis. The patient went to the operating room on hospital day 2 for robotic cholecystectomy. Please see ope rative report for details. Pathology was consistent with acute on chronic cholecystitis. She was di scharged home from the PACU in stable condition after the procedure. PLAN: Discharged home in stable condition for followup as an outpatient in our offices. Discharge p acket was given to the patient. She was to resume her preoperative medications. [id number]/[facility] #: [id number]
== END 2019-09-11 16:15 | disposition home or self-care (01) | DRG 263 ==
LOC: ED 06:31 → SSU 11:17 → OBSVTOIN 11:17 → INTOOBSV 11:17
PROVIDERS: ADMIT Physician Assistant Surgical; ATTEND Surgery
PROC: 8E0W4CZ Robotic Assisted Procedure of Trunk Region, Percutaneous Endoscopic Approach (ICD-10-PCS; 2019-09-11)
PROC: 0FT44ZZ Resection of Gallbladder, Percutaneous Endoscopic Approach (ICD-10-PCS; principal; 2019-09-11 11:15)
DX: K81.2 Acute cholecystitis with chronic cholecystitis (principal); F17.210 Nicotine dependence, cigarettes, uncomplicated; F31.9 Bipolar disorder, unspecified; F41.9 Anxiety disorder, unspecified; F32.9 Major depressive disorder, single episode, unspecified; Z80.3 Family history of malignant neoplasm of breast; Z80.0 Family history of malignant neoplasm of digestive organs; Z88.8 Allergy status to other drugs, medicaments and biological substances
CPT/HCPCS: 36415; 76705; 80053; 81003; 83690; 84702; 85025; 86140; 87070; 87205; 88304; 96374; 96375; 96376; 99284; A9270-GY; G0378; J0330; J0690; J0780; J1100; J1170; J1885; J2250; J2270; J2405; J2704; J3010; J3490

== ENCOUNTER 2019-09-14 23:53 | Emergency (ER) | payer OTHER ==
[2019-09-15 00:07] VITALS: BP 135/75
== END 2019-09-15 03:42 | disposition left against medical advice (07) ==
LOC: ED 23:53
DX: Z53.21 Procedure and treatment not carried out due to patient leaving prior to being seen by health care provider (principal); T81.9XXA Unspecified complication of procedure, initial encounter
CPT/HCPCS: 99282